=== PATIENT | female | born 1980 | race Caucasian/White ===

== ENCOUNTER 2021-03-16 07:59 | Outpatient (RCR) | payer BC | END 2021-06-14 | disposition home or self-care (01) | LOC: PT | DX: M25.572 Pain in left ankle and joints of left foot (principal) ==

== ENCOUNTER → 2021-06-07 | Outpatient (CLI) | payer BC | LOC: RAD 06:58 | DX: M67.813 Other specified disorders of tendon, right shoulder (principal) ==

== ENCOUNTER 2021-07-14 08:06 | Outpatient (RCR) | payer BC | END 2021-07-15 23:59 | disposition still patient (30) | LOC: PT 08:06 | DX: M25.511 Pain in right shoulder (principal) ==

== ENCOUNTER 2021-07-19 08:25 | Outpatient (RCR) | payer BC, OTHER | END 2021-08-15 | disposition home or self-care (01) | LOC: PT | DX: M25.511 Pain in right shoulder (principal) ==